=== PATIENT | male | born 1960 | race Caucasian/White ===

== ENCOUNTER 2017-11-28 14:39 | Emergency (ER) | payer OTHER ==
[~2017-11-28] VITALS: Ht 177.8 cm; Wt 86.0 kg
[~2017-11-28 14:39] MED LIST: FOLI1 PO; HYDR50CA10 PO; LIB25 PO; MULT-1203; PANT40TA25 PO; SERT50TA12 PO; THIA100T67 PO; TRAZ-220 PO
[2017-11-28 16:00] LABS: AMPHET/METH SCREEN,URINE NEGATIVE (NEGATIVE); BARBITURATE SCREEN, URINE NEGATIVE (NEGATIVE); BENZODIAZEPINES SCREEN,URINE NEGATIVE (NEGATIVE); CANNABINOID SCREEN,URINE NEGATIVE (NEGATIVE); COCAINE SCREEN,URINE NEGATIVE (NEGATIVE); METHADONE SCREEN, URINE NEGATIVE (NEGATIVE); OPIATE SCREEN,URINE NEGATIVE (NEGATIVE)
[2017-11-28 16:17] LABS: PHENCYCLIDINE SCREEN,URINE NEGATIVE (NEGATIVE)
[2017-11-28 17:50] VITALS: BP 132/80
== END 2017-11-28 17:55 | disposition home or self-care (01) ==
LOC: EMS 14:40
DX: F10.229 Alcohol dependence with intoxication, unspecified (principal); F17.210 Nicotine dependence, cigarettes, uncomplicated; F41.9 Anxiety disorder, unspecified; Z59.0 Homelessness; Z79.899 Other long term (current) drug therapy
CPT/HCPCS: 99283; 99406

== ENCOUNTER 2017-12-08 14:02 | Emergency (ER) | payer OTHER ==
[~2017-12-08] VITALS: Ht 167.6 cm; Wt 81.8 kg
[~2017-12-08 14:02] MED LIST changes: -FOLI1 PO; -LIB25 PO; -MULT-1203; -THIA100T67 PO
[2017-12-08 14:11] VITALS: BP 134/80
== END 2017-12-08 17:14 | disposition left against medical advice (07) ==
LOC: EMS 14:03
DX: Z76.0 Encounter for issue of repeat prescription (principal); Z53.21 Procedure and treatment not carried out due to patient leaving prior to being seen by health care provider

== ENCOUNTER 2018-01-27 12:53 | Inpatient (IN) | payer OTHER ==
[~2018-01-27] VITALS: Ht 167.6 cm; Wt 79.0 kg
[2018-01-27] MEDS ORDERED: NITROGLYCERIN 2% (1 GM=INCH) PACKET TP ONE (13:15)
[2018-01-27] MEDS ORDERED: ASPIRIN 325 MG TABLET PO ONE (13:15)
[2018-01-27] MEDS ORDERED: ONDANSETRON HCL 4 MG/2 ML VIAL IVP ONE ×2 (13:30)
[2018-01-27] MEDS ORDERED: GLUCAGON,HUMAN RECOMBINANT 1 MG VIAL IM ONE (13:30)
[2018-01-27 13:34] LABS: BASOPHILS % (AUTO) 0.3 % (0.0-2.0); EOSINOPHILS % (AUTO) 0.1 % (1.0-6.0); HEMATOCRIT 47.9 % (41-53); HEMOGLOBIN 16.4 g/dL (13.5-17.5); LYMPHOCYTES # (AUTO) 1.1 K/uL (1.0-4.8); LYMPHOCYTES % (AUTO) 4.5 % (22.0-44.0); MEAN CORPUSCULAR HEMOGLOBIN 30.7 pg (26.0-34.0); MEAN CORPUSCULAR HGB CONC 34.1 G/dL (31.0-37.0); MEAN CORPUSCULAR VOLUME 90 fL (80-100); MONOCYTES # (AUTO) 1.7 K/uL (0.1-1.0); MONOCYTES % (AUTO) 7.2 % (2.0-9.0); NEUTROPHILS # (AUTO) 20.8 K/uL (1.8-7.7); PLATELET COUNT (AUTO) 356 K/uL (150-450); RED BLOOD CELL COUNT(AUTO) 5.33 MIL/uL (4.50-5.90); RED CELL DISTRIBUTION WIDTH 14.8 % (11.5-14.5)
[2018-01-27 13:35] LABS: NEUTROPHILS % (AUTO) 87.9 % (40.0-70.0)
[2018-01-27 13:50] LABS: PROTHROMBIN TIME 10.1 SEC (9.4-11.6)
[2018-01-27] MEDS ORDERED: MORPHINE SULFATE 4 MG/ML SYRINGE ONE (14:56)
[2018-01-27 15:45] LABS: ANION GAP 13 mmol/L (8-16); CARBON DIOXIDE 24 mmol/L (22-29); CHLORIDE 103 mmol/L (98-107); GLUCOSE,RANDOM 115 mg/dL (70-110); POTASSIUM 4.4 mmol/L (3.5-5.1); SODIUM SERUM 140 mmol/L (136-145)
[2018-01-27 15:46] LABS: ALANINE AMINOTRANSFERASE 51 U/L (12-78); ALKALINE PHOSPHATASE 76 U/L (46-116); ASPARTATE AMINOTRANSFERASE 28 U/L (15-37); CALCIUM, TOTAL 8.7 mg/dL (8.8-10.5); CREATINE KINASE, TOTAL ONLY 122 U/L (39-308); CREATININE 1.16 mg/dL (0.60-1.30); GLOMERULAR FILTR. RATE CALC > 60 mL/min (>60); UREA NITROGEN, BLOOD 17 mg/dL (7-18)
[2018-01-27 15:47] LABS: ALBUMIN 4.1 g/dL (3.4-5.0); B-TYPE NATRIURETIC PEPTIDE < 5 pg/mL (0-100); TOTAL PROTEIN, SERUM 7.7 g/dL (6.4-8.2)
[2018-01-27] MEDS ORDERED: IOVERSOL 350 MG/ML 100 ML VIAL ONE (16:58)
[2018-01-27] MEDS ORDERED: SODIUM CHLORIDE 0.9% 100 ML ONE (16:59)
[2018-01-27 17:24] LABS: AMPHET/METH SCREEN,URINE NEGATIVE (NEGATIVE); BARBITURATE SCREEN, URINE NEGATIVE (NEGATIVE); BENZODIAZEPINES SCREEN,URINE NEGATIVE (NEGATIVE); CANNABINOID SCREEN,URINE POSITIVE (NEGATIVE); COCAINE SCREEN,URINE NEGATIVE (NEGATIVE); METHADONE SCREEN, URINE NEGATIVE (NEGATIVE); OPIATE SCREEN,URINE POSITIVE (NEGATIVE)
[2018-01-27 17:30] LABS: PHENCYCLIDINE SCREEN,URINE NEGATIVE (NEGATIVE)
[2018-01-27 17:52] LABS: APPEARANCE,URINE CLEAR (CLEAR); PROTEIN,URINE POS 1+ (NEGATIVE)
[2018-01-27 17:53] LABS: BILIRUBIN,URINE NEGATIVE (NEGATIVE); GLUCOSE, URINE (UA) NEGATIVE (NEGATIVE); KETONES,URINE TRACE mg/dL (NEGATIVE); LEUKOCYTE ESTERASE ,URINE NEGATIVE (NEGATIVE); NITRATE,URINE NEGATIVE (NEGATIVE); OCCULT BLOOD,URINE NEGATIVE (NEGATIVE)
[2018-01-27 17:59] LABS: RBC,URINE None Seen /HPF (0-2); WBC,URINE 0-2 /HPF (0-5)
[2018-01-27 18:00] LABS: BACTERIA,URINE Few /HPF (None Seen); MUCUS,URINE Many LPF (None Seen); SQUAMOUS EPITHELIAL CELL,UR Rare /LPF (None Seen)
[2018-01-27] MEDS ORDERED: 0.9% SODIUM CHLORIDE 10 ML SYRINGE IVP PRN (19:00)
[2018-01-27] MEDS ORDERED: HYDROmorphone 2 MG/ML SYRINGE IVP PRN (19:00)
[2018-01-27] MEDS ORDERED: ONDANSETRON HCL 4 MG/2 ML VIAL IVP PRN ×2 (19:00→22:00)
[2018-01-27] MEDS ORDERED: ACETAMINOPHEN 325 MG TABLET PO PRN (19:00)
[2018-01-27] MEDS ORDERED: DEXTROSE 5%-0.45% SODIUM CHL 1,000 ML IV ONE (20:45)
[2018-01-27] MEDS ORDERED: ALBUTEROL SULFATE 2.5 MG/0.5 ML NEB SOLUTION NEB PRN (20:45)
[2018-01-27] MEDS ORDERED: MAGNESIUM OXIDE 400 MG TABLET PO PRN ×2 (20:45→21:00)
[2018-01-27] MEDS ORDERED: MAGNESIUM SULFATE 2 GM/WATER 50 ML IV PRN ×2 (20:45→21:00)
[2018-01-27] MEDS ORDERED: MAGNESIUM HYDROXIDE SUSPENSION 30 ML UDCUP PO PRN (20:45)
[2018-01-27] MEDS ORDERED: MAGNESIUM SULFATE 4 GM/WATER 100 ML IV PRN ×2 (20:45→21:00)
[2018-01-27] MEDS: DOCUSATE SODIUM 100 MG CAPSULE PO SCH (21:00)
[2018-01-27 21:07] VITALS: BP 120/64
[2018-01-27 21:10] LABS: ALBUMIN 4.2 g/dL (3.4-5.0); MAGNESIUM 1.4 mg/dL (1.80-2.40)
[2018-01-27] MEDS ORDERED: LURA60TA PO (21:48)
[2018-01-27] MEDS ORDERED: BUSP15 PO (21:48)
[2018-01-27] MEDS ORDERED: HYDR-3114 PO (21:49)
[2018-01-27] MEDS: TraZODone HCL 50 MG TABLET PO SCH (22:20)
[2018-01-27] MEDS: PANTOPRAZOLE SODIUM 40 MG/VIAL IVP SCH (23:16)
[2018-01-27] MEDS: MORPHINE SULFATE 4 MG/ML SYRINGE IVP PRN (23:16)
[2018-01-27 23:43] VITALS: BP 105/64
[2018-01-28] MEDS ORDERED: SUCCINYLCHOLINE CHLORIDE 20 MG/ML 10 ML VIAL IVP ONE (03:00)
[2018-01-28] MEDS ORDERED: PROPOFOL 1% 20 ML VIAL IVP ONE (03:00)
[2018-01-28] MEDS ORDERED: LIDOCAINE/PF 2% 5 ML VIAL INJ ONE (03:00)
[2018-01-28 04:45] VITALS: BP 139/80
[2018-01-28] MEDS: MORPHINE SULFATE 4 MG/ML SYRINGE IVP PRN ×5 (04:47→23:52)
[2018-01-28 06:38] LABS: BASOPHILS % (AUTO) 0.3 % (0.0-2.0); EOSINOPHILS % (AUTO) 1.9 % (1.0-6.0); HEMATOCRIT 40.9 % (41-53); LYMPHOCYTES # (AUTO) 1.7 K/uL (1.0-4.8); LYMPHOCYTES % (AUTO) 13.8 % (22.0-44.0); MEAN CORPUSCULAR HEMOGLOBIN 31.2 pg (26.0-34.0); MEAN CORPUSCULAR HGB CONC 34.3 G/dL (31.0-37.0); MEAN CORPUSCULAR VOLUME 91 fL (80-100); MONOCYTES # (AUTO) 1.3 K/uL (0.1-1.0); MONOCYTES % (AUTO) 10.9 % (2.0-9.0); NEUTROPHILS # (AUTO) 8.9 K/uL (1.8-7.7); NEUTROPHILS % (AUTO) 73.1 % (40.0-70.0); PLATELET COUNT (AUTO) 284 K/uL (150-450); RED BLOOD CELL COUNT(AUTO) 4.49 MIL/uL (4.50-5.90); RED CELL DISTRIBUTION WIDTH 14.5 % (11.5-14.5)
[2018-01-28 07:20] LABS: ALANINE AMINOTRANSFERASE 42 U/L (12-78); ALBUMIN 3.6 g/dL (3.4-5.0); ALKALINE PHOSPHATASE 68 U/L (46-116); ANION GAP 7 mmol/L (8-16); ASPARTATE AMINOTRANSFERASE 25 U/L (15-37); BILIRUBIN,TOTAL 1.6 mg/dL (0.1-1.0); CALCIUM, TOTAL 7.9 mg/dL (8.8-10.5); CARBON DIOXIDE 29 mmol/L (22-29); CHLORIDE 101 mmol/L (98-107); GLOMERULAR FILTR. RATE CALC > 60 mL/min (>60); GLUCOSE,RANDOM 117 mg/dL (70-110); POTASSIUM 3.8 mmol/L (3.5-5.1); SODIUM SERUM 137 mmol/L (136-145); TOTAL PROTEIN, SERUM 6.8 g/dL (6.4-8.2); UREA NITROGEN, BLOOD 18 mg/dL (7-18)
[2018-01-28] MEDS: PANTOPRAZOLE SODIUM 40 MG/VIAL IVP SCH ×2 (07:44→20:00)
[2018-01-28] MEDS: DOCUSATE SODIUM 100 MG CAPSULE PO SCH ×2 (07:48→20:00)
[2018-01-28] MEDS: BusPIRone HCL 15 MG TABLET PO SCH (07:48)
[2018-01-28 08:08] VITALS: BP 128/73
[2018-01-28] MEDS ORDERED: BusPIRone HCL 15 MG TABLET PO SCH (09:00)
[2018-01-28] MEDS: MULTIVITAMINS WITH MINERALS, THERAPEUTIC TABLET PO SCH (09:45)
[2018-01-28 11:39] VITALS: BP 123/71
[2018-01-28] MEDS ORDERED: SODIUM CHLORIDE 0.9% 1,000 ML IV ONE ×2 (13:39→14:00)
[2018-01-28 16:58] VITALS: BP 136/78
[2018-01-28 19:25] VITALS: BP 130/85
[2018-01-28] MEDS: TraZODone HCL 50 MG TABLET PO SCH (20:00)
[2018-01-28 23:32] VITALS: BP 111/70
[2018-01-29 05:08] VITALS: BP 116/66
[2018-01-29 06:15] LABS: BASOPHILS % (AUTO) 0.3 % (0.0-2.0); EOSINOPHILS % (AUTO) 3.3 % (1.0-6.0); HEMATOCRIT 40.4 % (41-53); HEMOGLOBIN 13.6 g/dL (13.5-17.5); LYMPHOCYTES # (AUTO) 1.7 K/uL (1.0-4.8); MEAN CORPUSCULAR HEMOGLOBIN 30.3 pg (26.0-34.0); MEAN CORPUSCULAR HGB CONC 33.7 G/dL (31.0-37.0); MEAN CORPUSCULAR VOLUME 90 fL (80-100); MONOCYTES # (AUTO) 1.3 K/uL (0.1-1.0); MONOCYTES % (AUTO) 8.1 % (2.0-9.0); NEUTROPHILS # (AUTO) 12.1 K/uL (1.8-7.7); NEUTROPHILS % (AUTO) 77.3 % (40.0-70.0); PLATELET COUNT (AUTO) 284 K/uL (150-450); RED BLOOD CELL COUNT(AUTO) 4.49 MIL/uL (4.50-5.90); RED CELL DISTRIBUTION WIDTH 13.9 % (11.5-14.5)
[2018-01-29 07:39] VITALS: BP 123/91
[2018-01-29] MEDS: MULTIVITAMINS WITH MINERALS, THERAPEUTIC TABLET PO SCH (08:09)
[2018-01-29] MEDS: BusPIRone HCL 15 MG TABLET PO SCH (08:09)
[2018-01-29] MEDS: DOCUSATE SODIUM 100 MG CAPSULE PO SCH (08:09)
[2018-01-29] MEDS: PANTOPRAZOLE SODIUM 40 MG/VIAL IVP SCH (08:10)
[2018-01-29] MEDS: ACETAMINOPHEN 325 MG TABLET PO PRN ×2 (08:10→14:51)
[2018-01-29 11:25] VITALS: BP 123/55
[2018-01-29 13:05] VITALS: BP 118/73
[2018-01-29] MEDS: MORPHINE SULFATE 4 MG/ML SYRINGE IVP PRN (13:11)
[2018-01-29 15:36] VITALS: BP 137/77
== END 2018-01-29 15:30 | disposition home or self-care (01) | DRG 254 ==
LOC: EMS 12:54 → 5S 18:59
PROVIDERS: ADMIT Internal Medicine; ATTEND Internal Medicine
PROC: 0DC58ZZ Extirpation of Matter from Esophagus, Via Natural or Artificial Opening Endoscopic (ICD-10-PCS; principal; 2018-01-28 14:30)
PROC: 3E0234Z Introduction of Serum, Toxoid and Vaccine into Muscle, Percutaneous Approach (ICD-10-PCS; 2018-01-29)
DX: T18.128A Food in esophagus causing other injury, initial encounter (principal); K22.10 Ulcer of esophagus without bleeding; K22.2 Esophageal obstruction; R13.10 Dysphagia, unspecified; D72.829 Elevated white blood cell count, unspecified; F10.10 Alcohol abuse, uncomplicated; F31.9 Bipolar disorder, unspecified; Z91.14 Patient's other noncompliance with medication regimen; Z23 Encounter for immunization; F41.9 Anxiety disorder, unspecified; Z91.19 Patient's noncompliance with other medical treatment and regimen; Y90.9 Presence of alcohol in blood, level not specified; X58.XXXA Exposure to other specified factors, initial encounter; Y93.89 Activity, other specified; Y92.89 Other specified places as the place of occurrence of the external cause; Y99.8 Other external cause status
CPT/HCPCS: 71260; 72193; 74160; 76700; 83605; 83735; 87040; 87081; 90686; 93005; 93306; 93970; 96374; C9113; G0378; G0480; J0330; J1170; J1610; J2270; J2405; J2704; J3475; J3490; J7030; J7050

== ENCOUNTER 2018-02-21 16:57 | Inpatient (IN) | payer OTHER ==
[~2018-02-21] VITALS: Ht 167.6 cm; Wt 76.6 kg
[~2018-02-21 16:57] MED LIST changes: +BUSP15 PO; -HYDR50CA10 PO; +LURA60TA PO; -SERT50TA12 PO
[2018-02-21 17:59] LABS: BASOPHILS % (AUTO) 0.5 % (0.0-2.0); EOSINOPHILS % (AUTO) 0.8 % (1.0-6.0); HEMATOCRIT 52.8 % (41-53); HEMOGLOBIN 18.2 g/dL (13.5-17.5); LYMPHOCYTES # (AUTO) 3.1 K/uL (1.0-4.8); MEAN CORPUSCULAR HEMOGLOBIN 32.2 pg (26.0-34.0); MEAN CORPUSCULAR HGB CONC 34.4 G/dL (31.0-37.0); MEAN CORPUSCULAR VOLUME 94 fL (80-100); MONOCYTES # (AUTO) 0.4 K/uL (0.1-1.0); MONOCYTES % (AUTO) 5.4 % (2.0-9.0); NEUTROPHILS # (AUTO) 4.5 K/uL (1.8-7.7); NEUTROPHILS % (AUTO) 55.3 % (40.0-70.0); PLATELET COUNT (AUTO) 346 K/uL (150-450); RED BLOOD CELL COUNT(AUTO) 5.64 MIL/uL (4.50-5.90); RED CELL DISTRIBUTION WIDTH 16.2 % (11.5-14.5)
[2018-02-21 18:10] LABS: AMPHET/METH SCREEN,URINE NEGATIVE (NEGATIVE); BARBITURATE SCREEN, URINE NEGATIVE (NEGATIVE); BENZODIAZEPINES SCREEN,URINE NEGATIVE (NEGATIVE); CANNABINOID SCREEN,URINE NEGATIVE (NEGATIVE); COCAINE SCREEN,URINE NEGATIVE (NEGATIVE); METHADONE SCREEN, URINE NEGATIVE (NEGATIVE); OPIATE SCREEN,URINE NEGATIVE (NEGATIVE); PHENCYCLIDINE SCREEN,URINE NEGATIVE (NEGATIVE)
[2018-02-21 18:13] LABS: ANION GAP 11 mmol/L (8-16); CALCIUM, TOTAL 8.4 mg/dL (8.8-10.5); CARBON DIOXIDE 28 mmol/L (22-29); CHLORIDE 103 mmol/L (98-107); CREATININE 0.98 mg/dL (0.60-1.30); GLOMERULAR FILTR. RATE CALC > 60 mL/min (>60); GLUCOSE,RANDOM 118 mg/dL (70-110); POTASSIUM 4.2 mmol/L (3.5-5.1); SODIUM SERUM 142 mmol/L (136-145); UREA NITROGEN, BLOOD 10 mg/dL (7-18)
[2018-02-21] MEDS ORDERED: PERTUSS(ACELL),DIPH,TET VAC/PF 0.5 ML VIAL IM ONE (18:15)
[2018-02-21] MEDS ORDERED: BACITRACIN 0.9 GM PACKET OINTMENT TP ONE (18:15)
[2018-02-21 18:22] LABS: ALANINE AMINOTRANSFERASE 47 U/L (12-78); ALBUMIN 3.9 g/dL (3.4-5.0); ALKALINE PHOSPHATASE 60 U/L (46-116); ASPARTATE AMINOTRANSFERASE 38 U/L (15-37); BILIRUBIN,TOTAL 0.4 mg/dL (0.1-1.0); LIPASE 198 U/L (73-393); TOTAL PROTEIN, SERUM 7.7 g/dL (6.4-8.2)
[2018-02-21] MEDS ORDERED: ACETAMINOPHEN 325 MG TABLET PO PRN (20:30)
[2018-02-21] MEDS ORDERED: 0.9% SODIUM CHLORIDE 10 ML SYRINGE IVP PRN ×2 (20:30→23:15)
[2018-02-21] MEDS ORDERED: ONDANSETRON HCL 4 MG/2 ML VIAL IVP PRN ×2 (20:30→23:15)
[2018-02-21] MEDS ORDERED: MAGNESIUM SULFATE 2 GM, MVI, ADULT NO.1 WITH VIT K 10 ML, THIAMINE HCL 100 MG, FOLIC AC... IV ONE ×5 (20:30)
[2018-02-21 22:08] VITALS: BP 127/78
[2018-02-21] MEDS ORDERED: ZOLPIDEM TARTRATE 5 MG TABLET PO PRN (23:15)
[2018-02-21] MEDS: PANTOPRAZOLE SODIUM 40 MG/VIAL IVP SCH (23:38)
[2018-02-21] MEDS: ChlordiazePOXIDE HCL 10 MG CAPSULE PO SCH (23:39)
[2018-02-21] MEDS: ZOLPIDEM TARTRATE 5 MG TABLET PO PRN (23:39)
[2018-02-21 23:40] VITALS: BP 124/77
[2018-02-22 03:48] VITALS: BP 117/74
[2018-02-22 06:17] LABS: BASOPHILS % (AUTO) 0.7 % (0.0-2.0); EOSINOPHILS % (AUTO) 2.9 % (1.0-6.0); HEMATOCRIT 46.7 % (41-53); HEMOGLOBIN 15.6 g/dL (13.5-17.5); LYMPHOCYTES % (AUTO) 30.2 % (22.0-44.0); MEAN CORPUSCULAR HEMOGLOBIN 31.2 pg (26.0-34.0); MEAN CORPUSCULAR HGB CONC 33.5 G/dL (31.0-37.0); MEAN CORPUSCULAR VOLUME 93 fL (80-100); MONOCYTES # (AUTO) 0.7 K/uL (0.1-1.0); MONOCYTES % (AUTO) 11.1 % (2.0-9.0); NEUTROPHILS # (AUTO) 3.6 K/uL (1.8-7.7); NEUTROPHILS % (AUTO) 55.1 % (40.0-70.0); PLATELET COUNT (AUTO) 302 K/uL (150-450); RED BLOOD CELL COUNT(AUTO) 5.01 MIL/uL (4.50-5.90); RED CELL DISTRIBUTION WIDTH 15.9 % (11.5-14.5)
[2018-02-22 06:39] LABS: ANION GAP 7 mmol/L (8-16); CALCIUM, TOTAL 7.9 mg/dL (8.8-10.5); CARBON DIOXIDE 28 mmol/L (22-29); CHLORIDE 106 mmol/L (98-107); CREATININE 0.82 mg/dL (0.60-1.30); GLOMERULAR FILTR. RATE CALC > 60 mL/min (>60); GLUCOSE,RANDOM 112 mg/dL (70-110); POTASSIUM 4.3 mmol/L (3.5-5.1); SODIUM SERUM 141 mmol/L (136-145); UREA NITROGEN, BLOOD 12 mg/dL (7-18)
[2018-02-22 07:18] VITALS: BP 131/81
[2018-02-22] MEDS: ChlordiazePOXIDE HCL 10 MG CAPSULE PO SCH ×3 (08:29→23:31)
[2018-02-22] MEDS: PANTOPRAZOLE SODIUM 40 MG/VIAL IVP SCH ×2 (08:29→20:10)
[2018-02-22 12:02] VITALS: BP 148/87
[2018-02-22 16:39] VITALS: BP 147/90
[2018-02-22 19:33] VITALS: BP 132/78
[2018-02-22] MEDS: QUEtiapine FUMARATE 200 MG TABLET PO SCH (20:10)
[2018-02-22 23:27] VITALS: BP 130/77
[2018-02-23 05:05] VITALS: BP 134/84
[2018-02-23 07:36] VITALS: BP 128/56
[2018-02-23] MEDS: SERTRALINE HCL 50 MG TABLET PO SCH (08:10)
[2018-02-23] MEDS: PANTOPRAZOLE SODIUM 40 MG/VIAL IVP SCH ×2 (08:10→20:15)
[2018-02-23] MEDS: ChlordiazePOXIDE HCL 10 MG CAPSULE PO SCH ×3 (08:10→23:21)
[2018-02-23 11:13] VITALS: BP 156/85
[2018-02-23 15:21] VITALS: BP 150/89
[2018-02-23 19:45] VITALS: BP 138/79
[2018-02-23] MEDS: QUEtiapine FUMARATE 200 MG TABLET PO SCH (20:15)
[2018-02-24 00:30] VITALS: BP 141/71
[2018-02-24] MEDS: ZOLPIDEM TARTRATE 5 MG TABLET PO PRN (01:51)
[2018-02-24 05:02] VITALS: BP 127/79
[2018-02-24 08:24] VITALS: BP 137/94
[2018-02-24] MEDS: PANTOPRAZOLE SODIUM 40 MG/VIAL IVP SCH (08:25)
[2018-02-24] MEDS: ChlordiazePOXIDE HCL 10 MG CAPSULE PO SCH (08:26)
[2018-02-24] MEDS: SERTRALINE HCL 50 MG TABLET PO SCH (08:26)
[2018-02-24 11:42] VITALS: BP 149/92
== END 2018-02-24 14:30 | disposition home or self-care (01) | DRG 52 ==
LOC: EMS 16:58 → 5N 20:37
PROVIDERS: ADMIT Internal Medicine; ATTEND Internal Medicine
PROC: HZ35ZZZ Individual Counseling for Substance Abuse Treatment, Vocational (ICD-10-PCS; principal; 2018-02-21)
DX: G93.40 Encephalopathy, unspecified (principal); F10.231 Alcohol dependence with withdrawal delirium; R45.851 Suicidal ideations; F31.4 Bipolar disorder, current episode depressed, severe, without psychotic features; R55 Syncope and collapse; K70.30 Alcoholic cirrhosis of liver without ascites; F10.229 Alcohol dependence with intoxication, unspecified; F41.9 Anxiety disorder, unspecified; S00.81XA Abrasion of other part of head, initial encounter; W19.XXXA Unspecified fall, initial encounter; Y93.89 Activity, other specified; Y92.89 Other specified places as the place of occurrence of the external cause; Y99.8 Other external cause status; Z59.0 Homelessness; Y90.8 Blood alcohol level of 240 mg/100 ml or more
CPT/HCPCS: 70450; 83735; 87081; 90471; 90715; 93005; 96365; C9113; G0378; G0480; J3411; J3475; J3490; J7030